=== PATIENT | male | born 1990 | race Caucasian/White ===

== ENCOUNTER 2017-04-23 10:45 | Day surgery (SDC) | payer OTHER ==
[2017-04-23] VITALS (15 sets, daily range): BP systolic 129–189; BP diastolic 61–103; PULSE 62–85; RESP 10–22; Ht 167.6 cm; Wt 81.0 kg
[~2017-04-23] VITALS: Ht 167.6 cm; Wt 81.0 kg
[~2017-04-23 10:45] MED LIST: CEFAZOLIN 2 GM/50 ML (PMX) 50 ML IVPB SCH; SOD CHLORIDE 0.9% 1,000 ML IV SCH
[2017-04-23] MEDS ORDERED: BUPIVACAINE 0.25% (MPF) 30 ML INJ ONE (13:09)
[2017-04-23] MEDS ORDERED: MIDAZOLAM 1 MG/ML 2 ML INJ ONE (13:22)
[2017-04-23] MEDS ORDERED: FENTAnyl 50 MCG/ML VIAL ONE ×2 (13:22→14:26)
[2017-04-23] MEDS ORDERED: SUCCINYLCHOLINE CHLORIDE 100 MG/5 ML SYG IV ONE (13:22)
[2017-04-23] MEDS ORDERED: ROCURONIUM 50 MG INJ ONE (13:22)
[2017-04-23] MEDS ORDERED: PROPOFOL 20 ML ONE ×2 (13:22→13:50)
[2017-04-23] MEDS ORDERED: LIDOCAINE 2% (SDV) 5 ML INJ ONE (13:22)
[2017-04-23] MEDS ORDERED: CEFAZOLIN 1 GM INJ ONE (13:33)
[2017-04-23] MEDS ORDERED: FAMOTIDINE 20 MG INJ ONE (13:49)
[2017-04-23] MEDS ORDERED: ONDANSETRON 4 MG INJ ONE ×2 (13:49→14:26)
[2017-04-23] MEDS ORDERED: DEXAMETHASONE 4 MG/ML 1 ML INJ ONE (13:49)
[2017-04-23] MEDS ORDERED: HYDROmorphONE 2 MG/ML SYG ONE (14:00)
[2017-04-23] MEDS ORDERED: HYDROmorphONE (0.2 MG/ML) 10ML SYG IV ONE (14:19)
--- NOTE | 2017-04-23 14:24 | OPR ---
Date/Time of Note Date/Time of Note DATE: 04/23/17 TIME: 14:12 Operative Report Procedure Date: Apr 23, 2017 Preoperative Diagnosis symptomatic gallstones Postoperative Diagnosis same Operation Performed 1. laparoscopic cholecystectomy 2. therapeutic injection of subcutaneous marcaine cpt code [id number] Surgeon: Kunal LIZAMA Anesthesia Type: general Estimated Blood Loss: 10 - 50 ml's Specimens gallbladder Grafts/Implants: none Complications: no Indications This is a 27 year old male with symptomatic gallstones. He requests surgical excision of his gallbladder. Risks, alternatives, benefits, and personnel were discussed with the patient. The patient expressed understanding and consents to the operation. Procedure Description Patient was taken to the OR and prepped and draped the usual sterile fashion. Surgical timeout is performed IV is given. Infra umbilical incision distally with a 15 blade. Dissection cautery was carried onto the fascia. The fascia was grasped with Alexandria's and divided with curved Pereira scissors. 0 Vicryl U stitches placed into the fascia. Balloon Esparza trocar is introduced. Pneumoperitoneum is established. Midepigastric 12 mm optical trocar was placed under direct visualization. Right upper flank 5 couple trochars were placed under direct visualization. Initial visualization of the liver showed no evidence of any cirrhosis or architectural change. Liver biopsy was not performed. Performed. Upon inspection the gallbladder was confirmed on approach was taken. Superior [place] initially and then lateral dissection. This allowed visualization of the cystic duct. Gallbladder was retracted to lateral and outward direction. This allowed visualization of the view. The cystic duct was divided with 3 clips proximal and due to the thickened tissue 35 echelon vascular stapler was used to divide the cystic artery is divided with 3 clips proximal 1 clip distal. The gallbladder is taken of the gallbladder bed. There is good hemostasis. Gallbladder is retrieved using an Endo Catch bag. Ports removed under direct visualization. 0 Vicryl U stitch was tied down. Skin is closed and skin jose. The pubic subcutaneous Marcaine is injected into all port sites appear Kunal LIZAMA Apr 23, 2017 14:23
[2017-04-23] MEDS ORDERED: MEPERIDINE 25 MG INJ ONE (14:26)
[2017-04-23] MEDS ORDERED: METOCLOPRAMIDE 10 MG INJ IV PRN (14:30)
[2017-04-23] MEDS ORDERED: FENTAnyl 50 MCG/ML VIAL IV PRN (14:30)
[2017-04-23] MEDS ORDERED: HYDROmorphONE (0.2 MG/ML) 10ML SYG IV PRN ×2 (14:30)
[2017-04-23] MEDS ORDERED: KETOROLAC 30 MG INJ IV PRN (14:30)
[2017-04-23] MEDS ORDERED: OXYCODONE/ACETAMINOPHEN (5/325) TAB PO PRN ×2 (14:30)
[2017-04-23] MEDS ORDERED: ONDANSETRON 4 MG INJ IV PRN (14:30)
[2017-04-23] MEDS ORDERED: MEPERIDINE 25 MG INJ IV PRN (14:30)
[2017-04-23] MEDS ORDERED: HYDROCODONE/APAP (5/325) TAB PO ONE (14:30)
[2017-04-23] MEDS ORDERED: hydrALAzine 20 MG INJ IV PRN (14:30)
[2017-04-23] MEDS ORDERED: DIPHENHYDRAMINE 50 MG INJ IV PRN (14:30)
[2017-04-23] MEDS ORDERED: LABETALOL HCL 20MG INJ IV PRN (14:30)
[2017-04-23] MEDS: HYDROmorphONE (0.2 MG/ML) 10ML SYG IV PRN ×2 (14:36→15:03)
== END 2017-04-23 16:56 | disposition home or self-care (01) ==
LOC: SDS 10:45
PROVIDERS: ATTEND Surgery
DX: K80.10 Calculus of gallbladder with chronic cholecystitis without obstruction (principal)
CPT/HCPCS: 47562; 88304; J0690; J1100; J1170; J2175; J2250; J2405; J3010; Z7512; Z7610; J7999